=== PATIENT | male | born 1985 | race Caucasian/White ===

== ENCOUNTER → 2020-03-14 | Outpatient (CLI) | payer OTHER ==
[~2020-03-14] MED LIST: PANT40TA3 PO
== END | disposition home or self-care (01) ==
LOC: LAB 13:43
PROVIDERS: ATTEND Registered Nurse
DX: Z01.818 Encounter for other preprocedural examination (principal); Z11.59 Encounter for screening for other viral diseases; Z85.028 Personal history of other malignant neoplasm of stomach
CPT/HCPCS: C9803; U0003; 36415

== ENCOUNTER → 2020-03-18 | Day surgery (SDC) | payer OTHER ==
[~2020-03-18] MED LIST changes: +GLYCOPYRROLATE 1 MG/5 ML VIAL. ONE; +IPRATRPIUM/ALBUTEROL 0.5/2.5MG 3 ML NEBU. NEB PRN; +IV RINGERS SOLUTION,LACTATED 1,000 ML IV SCH; +MIDAZOLAM HCL PF 2 MG/2 ML VIAL. IV ONE; +ONDANSETRON PF 4 MG/2 ML VIAL. IV PRN; +PROPOFOL 10,000 MCG/ML (20ML) VIAL IV ONE
--- NOTE | 2020-03-18 08:07 | NUR ---
STARTED PT IV AND PT NOTED TO VAGAL AND PASS OUT POST IV STICK. O2 84% PUPILS FIXED AND DILATED. UNRESPONSIVE. PLACED PT HEAD DOWN IN TRENDELENBURG POSITION AND SQUEEEZED IV BOLUS THROUGH IV. PULSE 44 AND PT NOTED TO BE COOL AND DIAPHORETIC. PULSE STRONG. AROUSED PT AND DID STERNAL RUB, PT RESPONDED PUPILS RESPONDING TO LIGHT. PT TALKING AND O2 BACK TO 100%. PT RESTING AND LYING FLAT PT133/51. WITHOUT COMPLAINTS OF. DR GUTIERREZ NOTIFIED OF SITUATION AND ANESTHESIA NOTIFIED AND AT BEDSIDE
[2020-03-18 10:06] VITALS: BP 117/53
--- NOTE | 2020-03-19 16:07 | PATHOLOGY ---
[facility] Accession Number: [id number] . 01 Material submitted: . stomach - GASTRIC BIOPSY . 01 Clinical history: . None provided . 02 Diagnosis: Gastric biopsies: - Very mild chronic gastritis. 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 02 Comment: Sections of the gastric biopsy reveal segments of gastric body mucosa, gastric antral/body transition mucosa, and gastric antral mucosa showing congestion and focal very mild superficial chronic inflammation. A properly controlled immunoperoxidase stain for Helicobacter is negative for Helicobacter organisms. There is no evidence of involvement by MALT lymphoma. 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 . Special stain performed: Immunoperoxidase stain for Helicobacter . 02 Electronically signed: . Basim Ferguson MD, Pathologist NPI- [id number] . 01 Gross description: . The specimen is received in formalin, labeled "Bret Marshall, gastric biopsy". Received are seven segments of pale porter soft tissue ranging in size from 0.3 to 0.7 cm in maximum dimensions. The specimen is submitted entirely in cassette A1. (CAA; 03/18/2020) QA/QA 03/18/2020 1917 Local . 02 Pathologist provided ICD-10: K29.50 . 02 CPT . 008922, [id number] Specimen Comment: A courtesy copy of this report has been sent to [phone] Specimen Comment: [phone] Specimen Comment: Report sent to / DR MILLS Specimen Comment: A duplicate report has been generated due to demographic updates. Performed at: 01 [facility] [address] [facility] [address] [place] [id number] MD Christian Diaz MD Phone: [phone] Performed at: [address] [id number] MD Basim Ferguson MD Phone: [phone]
== END ==
LOC: SURG 07:34
PROVIDERS: ATTEND Emergency Medicine
DX: K29.50 Unspecified chronic gastritis without bleeding (principal); Z85.028 Personal history of other malignant neoplasm of stomach
CPT/HCPCS: 43239; J2704; J3490; J7120; 88305; 88342